=== PATIENT | male | born 1995 | race Caucasian/White ===

== ENCOUNTER 2018-12-23 07:37 | Emergency (ER) | payer OTHER ==
[2018-12-23 08:01] VITALS: BMI 23.5
[2018-12-23] MEDS ORDERED: predniSONE 10 MG TABLET (UD) PO ONE (08:18)
[2018-12-23] MEDS ORDERED: diphenhydrAMINE HCL 25 MG CAPSULE (FP) PO ONE ×2 (08:20→08:27)
[2018-12-23] MEDS ORDERED: MAG HYDROX/AL HYDROX/SIMETH 30 ML UNIT-DOSE CUP PO ONE (08:21)
[2018-12-23] MEDS ORDERED: RANITIDINE HCL 150 MG TABLET (FP) PO ONE (08:23)
[2018-12-23] MEDS ORDERED: predniSONE 20 MG TABLET (UD) ONE (08:26)
[2018-12-23] MEDS ORDERED: MAG HYDROX/AL HYDROX/SIMETH 30 ML UNIT-DOSE CUP ONE (08:27)
[2018-12-23] MEDS ORDERED: predniSONE 10 MG TABLET (UD) ONE (08:27)
[2018-12-23] MEDS ORDERED: RANITIDINE HCL 150 MG TABLET (FP) ONE (08:27)
--- NOTE | 2018-12-23 09:03 | PDOC ---
History of Present Illness - General Chief Complaint: Allergic Reaction Stated Complaint: ALLERGIC REACTION Time Seen by Provider: 12/23/18 07:58 History Source: Patient Exam Limitations: No Limitations - History of Present Illness Initial Comments: 12/23/18 09:04 23m with pmh of gerd and fibromyalgia, presents to the ED for new onset urticaria. Patient states that he woke up feeling nauseous with epigastric burning, went to the bathroom and realized he has some difficulty breathing properly and also had a itchy rash all over his neck, arms and some on his chest. He took 1.5x25mg Benadryl. Some of the rash went away and he was able to breathe back to baseline. He admits trying on a new deodorant yesterday (Old Spice) which used to give his brother allergies. He also states that his father slept in his bed 2 nights ago after smearing himself in "cream".Sheets were not changed. Still complaining of epigastric burning. 12/23/18 09:29 12/23/18 09:37 Past History - Past Medical History Allergies/Adverse Reactions: Allergies Allergy/AdvReac Type Severity Reaction Status Date / Time No Known Allergies Allergy Verified 12/23/18 08:22 Home Medications: Ambulatory Orders Epinephrine [Epipen 2-Joaquin] 0.3 mg IJ ASDIR #1 kit 12/23/18 Prednisone [Prednisone 50 MG TABLETS] 50 mg PO DAILY #4 tablet 12/23/18 COPD: No - Suicide/Smoking/Psychosocial Hx Smoking History: Former smoker Have you smoked in the past 12 months: No Information on smoking cessation initiated: No Hx Alcohol Use: No Drug/Substance Use Hx: Yes Review of Systems - Review of Systems Able to Perform ROS?: Yes Is the patient limited Ukrainian proficient: No Constitutional: No: Symptoms Reported HEENTM: No: Symptoms Reported Respiratory: Yes: See HPI Cardiac (ROS): No: Symptoms Reported ABD/GI: Yes: See HPI : No: Symptoms Reported Integumentary: Yes: See HPI Neurological: No: Symptoms reported All Other Systems: Reviewed and Negative *Physical Exam - Vital Signs Last Vital Signs Temp Pulse Resp BP Pulse Ox 98.4 F 81 20 130/82 100 12/23/18 07:58 12/23/18 07:58 12/23/18 07:58 12/23/18 07:58 12/23/18 07:58 - Physical Exam General Appearance: Yes: Nourished, Appropriately Dressed. No: Apparent Distress HEENT: positive: EOMI, PATY, Normal ENT Inspection Neck: positive: Trachea midline. negative: Tender, Stridor Respiratory/Chest: positive: Lungs Clear, Normal Breath Sounds. negative: Chest Tender, Respiratory Distress Cardiovascular: positive: Regular Rhythm, Regular Rate, S1, S2 Gastrointestinal/Abdominal: positive: Normal Bowel Sounds, Tender (mild epigastric), Flat, Soft Integumentary: positive: Hives (raised urticaria mostly concentrated over back of the neck, armpits b/l. Not itchy at the moment) Moderate Sedation - Procedure Monitoring Vital Signs: Procedure Monitoring Vital Signs Temperature 98.4 F 12/23/18 07:58 Pulse Rate 81 12/23/18 07:58 Respiratory Rate 20 12/23/18 07:58 Blood Pressure 130/82 12/23/18 07:58 O2 Sat by Pulse Oximetry (%) 100 12/23/18 07:58 Medical Decision Making - Medical Decision Making 12/23/18 09:41 Like new-onset urticaria from allergic reaction to deodorant or other substance. Will give dose of benadryl, prednisone and ranitidine for epigastric burning and observe 3 hours before d/c *DC/Admit/Observation/Transfer Diagnosis at time of Disposition: Urticaria - Discharge Dispostion Disposition: HOME Condition at time of disposition: Stable - Prescriptions Prescriptions: Epinephrine [Epipen 2-Joaquin] 0.3 mg IJ ASDIR #1 kit Prednisone [Prednisone 50 MG TABLETS] 50 mg PO DAILY #4 tablet - Referrals Referrals: [facility] – [place] [facility] [place] [Provider Group] Jennifer Webster [Primary Care Provider] - - Patient Instructions Printed Discharge Instructions: DI for General Allergic Reactions Additional Instructions: Follow up with your primary doctor within 1 week Take the prednisone daily for the next 4 days, starting tomorrow Take benadryl every 8 hours as needed for hives or itching. Do not drive or operate machinery while taking benadryl. As discussed, use the epi pen for severe allergic reactions where you experience symptoms such as throat closing, shortness of breath, vomiting, dizziness, or chest pain Return to the emergency department if you have any new, worsening, or concerning symptoms. - Post Discharge Activity
--- NOTE | 2018-12-23 09:42 | PDOC ---
Attending Attestation - Resident Resident Name: RaffySrikanth - ED Attending Attestation I have performed the following: I have examined & evaluated the patient, The case was reviewed & discussed with the resident, I agree w/resident's findings & plan, Exceptions are as noted - HPI HPI: 12/23/18 09:23 23yo M hx fibromyalgia presents to the ED with hives, nausea, and resolved SOB. Pt reports he was sleeping, felt nauseous and got up to walk to the bathroom at which point he noticed hives on his neck, trunk, arms, legs. He also felt his throat was closing prompting him to take 1 and half pills of benadryl. At that point, pt came to the ED. On arrival here, he states the throat closing has resolved. Pt has had hives before in response to cats and dogs, but has never had associated nausea and SOB. Has never received epi in the past. He reports using a new old spice deodorant yesterday and a new lavender linen spray recently. No new detergents or exposures. No recent fevers, chills, CP, headache , dizziness, weakness/numbness, abd pain, urinary sxs. - Physicial Exam PE: 12/23/18 09:42 GENERAL: Awake, alert, and fully oriented, in no acute distress HEAD: No signs of trauma EYES: PERRLA, EOMI, sclera anicteric, conjunctiva clear ENT: Auricles normal inspection, hearing grossly normal, nares patent, oropharynx clear without exudates. Moist mucosa NECK: Normal ROM, supple, no lymphadenopathy, JVD, or masses LUNGS: Breath sounds equal, clear to auscultation bilaterally. No wheezes, and no crackles HEART: Regular rate and rhythm, normal S1 and S2, no murmurs, rubs or gallops ABDOMEN: Soft, nontender, normoactive bowel sounds. No guarding, no rebound. No masses EXTREMITIES: Normal range of motion, no edema. No clubbing or cyanosis. No cords, erythema, or tenderness NEUROLOGICAL: Normal speech, cranial nerves intact, negative pronator drift, 5/ 5 strength in all 4 extremities, normal sensation to light touch in all 4 extremities, normal cerebellar exam, normal gait, normal reflexes and tone SKIN: Warm, Dry, normal turgor, no rashes or lesions noted. - Medical Decision Making 12/23/18 10:23 23yo M presents to the ED with allergic reaction to unknown precipitant. Vitals here wnl. Exam with hives, but no resp distress, oral edema, wheezing. Pt is well appearing and comfortable. At this time, hives have mostly resolved after benadryl, pepcid, and steroids. Pt feeling much better, requests DC home. Discussed epi pen indications and usage of pen. Pt expresses understanding. Return precautions given. I discussed the physical exam findings, ancillary test results and final diagnoses with the patient. I answered all of the patient's questions. The patient was satisfied with the care received and felt comfortable with the discharge plan and treatment plan. The patient will call their primary care physician within 24 hours to arrange follow-up and will return to the Emergency Department with any new, persistent or worsening symptoms.
[2018-12-23 10:17] VITALS: BP 114/75; PULSE 71; TEMP 98
== END 2018-12-23 10:32 | disposition home or self-care (01) ==
LOC: JER 07:37
DX: L50.0 Allergic urticaria (principal); T78.40XA Allergy, unspecified, initial encounter; X58.XXXA Exposure to other specified factors, initial encounter
CPT/HCPCS: 99282-25

== ENCOUNTER 2019-10-15 17:27 | Emergency (ER) | payer OTHER ==
[2019-10-15 17:35] VITALS: BP 126/73; PULSE 87; TEMP 98; BMI 26.6
[2019-10-15] MEDS ORDERED: LACTATED RINGERS SOLUTION 1000 ML INFUS.BAG IV ONE (18:16)
[2019-10-15] MEDS ORDERED: SODIUM CHLORIDE 0.9% 500 ML INFUS.BAG IV ONE (18:18)
--- NOTE | 2019-10-15 18:20 | PDOC ---
History of Present Illness - General Chief Complaint: Cold Symptoms Stated Complaint: FLU LIKE SYMPTOMS Time Seen by Provider: 10/15/19 18:14 - History of Present Illness Initial Comments: 10/15/19 18:19 24-year-old male without comorbidities presents for evaluation of vomiting fever and diarrhea x1 day started this morning. Unable to tolerate liquids at home Past History - Past Medical History Allergies/Adverse Reactions: Allergies Allergy/AdvReac Type Severity Reaction Status Date / Time No Known Allergies Allergy Verified 10/15/19 18:08 Home Medications: Ambulatory Orders Epinephrine [Epipen 2-Joaquin] 0.3 mg IJ ASDIR #1 kit 12/23/18 Prednisone [Prednisone 50 MG TABLETS] 50 mg PO DAILY #4 tablet 12/23/18 COPD: No - Psycho Social/Smoking Cessation Hx Smoking History: Never smoked Have you smoked in the past 12 months: No Hx Alcohol Use: No Drug/Substance Use Hx: No Review of Systems - Review of Systems Constitutional: Yes: Fever ABD/GI: Yes: Diarrhea, Nausea, Vomiting. No: Blood Streaked Bowels *Physical Exam - Vital Signs Last Vital Signs Temp Pulse Resp BP Pulse Ox 98.0 F 87 18 126/73 10 L 10/15/19 17:33 10/15/19 17:33 10/15/19 17:33 10/15/19 17:33 10/15/19 17:33 - Physical Exam 10/15/19 18:20 GENERAL: The patient is awake, alert, and fully oriented, in no acute distress. HEAD: Normal with no signs of trauma. EYES: sclera anicteric, conjunctiva clear. ENT: Ears normal tympanic membranes normal oropharynx clear uvula midline mucous membranes dry NECK: Normal range of motion LUNGS: Breath sounds equal, clear to auscultation bilaterally. No wheezes, and no crackles. HEART: S1 and S2 without murmur, rub or gallop. ABDOMEN: Soft, nontender, normoactive bowel sounds. No guarding, no rebound. No masses. EXTREMITIES: Normal range of motion, no edema. No clubbing or cyanosis. No cords, erythema, or tenderness. NEUROLOGICAL: Cranial nerves II through XII grossly intact. Normal speech, normal gait. PSYCH: Normal mood, normal affect. SKIN: Warm, Dry, normal turgor, no rashes or lesions noted. 10/15/19 18:20 ED Treatment Course - LABORATORY CBC & Chemistry Diagram: 10/15/19 18:20 10/15/19 18:20 Medical Decision Making - Medical Decision Making 10/15/19 18:20 Patient is clinically dehydrated will treat with fluids for now and reevaluate blood work drawn I would like to check his potassium 10/15/19 19:25 Patient feeling better after fluids. Supportive care with Pedialyte for viral gastroenteritis follow-up with primary care physician Discharge - Discharge Information Problems reviewed: Yes Clinical Impression/Diagnosis: Viral gastroenteritis Condition: Improved Disposition: HOME - Admission No - Follow up/Referral Referrals: Tima Nathan [Primary Care Provider] - - Patient Discharge Instructions Patient Printed Discharge Instructions: Viral Gastroenteritis Additional Instructions: Continue to maintain hydration with Pedialyte. Tylenol Motrin as directed for pain and fever. Return to the emergency room for worsening symptoms. Without fail please follow-up with your primary care physician in 2 to 3 days for further evaluation and treatment options. - Post Discharge Activity
[2019-10-15 18:37] LABS: BASO % 0.2 % (0-2.0); EOS % 0.4 % (0-4.5); HEMATOCRIT 50.6 % (35.4-49); LYMPH % 3.2 % (8-40); MCH 30.8 pg (25.7-33.7); MCHC 33.7 g/dl (32.0-35.9); MEAN CELL VOLUME 91.5 fl (80-96); MEAN PLT VOLUME 9.9 fl (7.5-11.1); MONO % 4.8 % (3.8-10.2); NEUT % 91.4 % (42.8-82.8); PLATELET COUNT 168 K/MM3 (134-434); RBC 5.53 M/mm3 (4.00-5.60); RDW 12.8 % (11.9-15.9); WHITE BLOOD COUNT 10.3 K/mm3 (4.0-10.0)
[2019-10-15 19:05] LABS: ALBUMIN 4.5 g/dl (3.4-5.0); BILIRUBIN,TOTAL 1.2 mg/dL (0.2-1); CALCIUM 9.3 mg/dL (8.5-10.1); TOT PROT 7.9 g/dl (6.4-8.2)
== END 2019-10-15 19:28 | disposition home or self-care (01) ==
LOC: JERFT 17:27
PROC: 3E0337Z Introduction of Electrolytic and Water Balance Substance into Peripheral Vein, Percutaneous Approach (ICD-10-PCS; principal; 2019-10-15)
DX: A08.4 Viral intestinal infection, unspecified (principal)
CPT/HCPCS: 36415; 80053; 85025; 99281-25